=== PATIENT | female | born 1965 | race Caucasian/White ===

== ENCOUNTER 2021-06-16 12:54 | Outpatient (CLI) | payer BC, SELFPAY ==
[2021-06-16 14:35] LABS: SARS-CoV-2 RNA PCR Positive (Negative)
== END 2021-06-16 12:55 | disposition home or self-care (01) ==
LOC: CHSLAB 12:57
PROVIDERS: PCP Family Medicine Adolescent Medicine; Visit Provider Family Medicine Adolescent Medicine
DX: U07.1 COVID-19 (principal); R50.9 Fever, unspecified; M79.10 Myalgia, unspecified site
CPT/HCPCS: C9803; U0003; U0005

== ENCOUNTER 2021-11-17 13:09 | Emergency (ER) | payer BC, SELFPAY ==
--- NOTE | ~2021-11-17 | CT_ITS ---
EXAMINATION: CT brain wo con DATE: 11/17/2021 15:34 INDICATION: Status post post fall in shower. Headache. TECHNIQUE: Computed tomography (CT) of the head was performed without intravenous contrast. The dose- length product was 605.33 mGy-cm. Automated exposure control and iterative reconstruction technique w ere employed. COMPARISON: None FINDINGS: No acute intracranial hemorrhage, infarction, mass or mass effect. No ventriculomegaly or m idline shift. Basilar cisterns are patent. Normal gerardo-white differentiation. Maxillary, ethmoid, sph enoid and frontal sinuses. Mastoids are pneumatized. No depressed skull fractures. IMPRESSION: 1. No acute intracranial abnormality. 2: Moderate sinusitis. Reviewed, dictated and finalized at location A.
--- NOTE | ~2021-11-17 | CT_ITS ---
EXAMINATION: CT chest abdomen pelvis w con DATE: 11/17/2021 15:34 INDICATION: left upper abd pain, fall, LT RIB PAIN . TECHNIQUE: Computed tomography (CT) of the chest, abdomen, and pelvis was performed with 100 mL Omnip aque 300 intravenous contrast. Automated exposure control and iterative reconstruction technique were employed. The dose-length product was 605.33 mGy-cm. COMPARISON: CT chest 08/21/2016Z. CT abdomen and pelvis 05/28/2015. FINDINGS: CHEST: No thoracic aortic injury. No mediastinal hematoma. No pericardial effusion. No acute lung injury. No pleural effusion or pneumothorax. ABDOMEN/PELVIS: No solid organ injury. No evidence of bowel or mesenteric injury. No free fluid or free air. No retroperitoneal hematoma. Pelvic contents are atraumatic. MUSCULOSKELETAL: No acute fracture. No fracture or traumatic malalignment of the thoracic or lumbar spine. IMPRESSION: No acute process detected in the chest, abdomen, or pelvis. Reviewed, dictated and finalized at location K.
[2021-11-17 13:27] VITALS: BP 152/95; PULSE 84; RESP 16; TEMP 36.7; O2SAT 98
--- NOTE | 2021-11-17 14:00 | PC.NURSE ---
erp at bedside for initial assessment
--- NOTE | 2021-11-17 14:10 | ECG_ITS ---
Measurements Intervals [place] Rate: 73 P: 58 VA: 136 QRS: 13 QRSD: 89 T: 37 QT: 435 QTc: 483 Interpretive Statements SINUS RHYTHM VENTRICULAR PREMATURE COMPLEX RSR' IN V1 OR V2, PROBABLY NORMAL VARIANT BORDERLINE T WAVE ABNORMALITY- ANTERIOR LEADS BASELINE ARTIFACT- II, III, AVR, AVL, AVF, V2-V3 BORDERLINE ECG Electronically Signed On 11-17-2021 14:34:02 CDT by Aakash Guevara D.O.
[2021-11-17] MEDS: SODIUM CHLORIDE 0.9% IV 500 ML 999 ML IV CONT (14:23)
[2021-11-17] MEDS: KETOROLAC 30 MG/ML VIAL (*BKC) IM (14:23)
[2021-11-17 14:47] LABS: Basophils Absolute Auto 0.03 K/mm3 (0.00-0.10); Basophils Percent Auto 0.4 % (0.0-1.0); Eosinophils Absolute Auto 0.14 K/mm3 (0.02-0.50); Hemoglobin 13.9 g/dL (12.0-15.0); Immature Granulocyte Absolute 0.02 K/mm3 (0.00-0.00); Immature Granulocyte Percent A 0.3 % (0.0-0.0); Lymphocytes Absolute Auto 1.68 K/mm3 (1.10-4.50); Lymphocytes Percent Auto 23.4 % (18.0-42.0); Mean Corpuscular HGB Conc 33.1 g/dL (32.0-36.0); Mean Corpuscular Hemoglobin 31.8 pg (27.0-31.0); Mean Corpuscular Volume 96.1 fL (78.0-102.0); Monocytes Absolute Auto 0.47 K/mm3 (0.10-0.90); Monocytes Percent Auto 6.6 % (2.0-11.0); Neutrophils Absolute Auto 4.8 K/mm3 (1.7-7.2); Neutrophils Percent Auto 67.3 % (50.0-70.0); Platelet Count Result 245 K/mm3 (150-420); Red Blood Count 4.37 M/mm3 (4.20-5.40); Red Cell Distribution Width 14.6 % (11.6-14.4); White Blood Count 7.2 K/mm3 (4.8-10.8)
[2021-11-17 15:00] VITALS: BP 152/108; PULSE 65; RESP 18; O2SAT 97
[2021-11-17 15:03] LABS: Alanine Aminotransferase 19 U/L (14-59); Albumin Level 3.6 g/dL (3.4-5.0); Alkaline Phosphatase 84 U/L (46-116); Anion Gap 8 mmol/L (8-16); Aspartate Amino Transferase 15 U/L (15-37); Base Excess ABG -0.4 mmol/L (0-2); Bilirubin,Total 0.2 mg/dL (0.00-1.00); Blood Urea Nitrogen 6 mg/dL (7-18); Calcium 8.3 mg/dL (8.5-10.1); Carbon Dioxide 27 mmol/L (21-32); Chloride 105 mmol/L (98-108); Estimated Glomerular Filt Rate > 60; Glucose 93 mg/dL (70-99); HCO3 ABG 24.1 mmol/L (23-29); Lipase 203 U/L (73-393); Osmolality Calculated 287 mOsm/kg (285-295); Oxygen Content ABG 17.3 %vol (16.0-22.0); Oxygen Saturation ABG 90.5 % (95-97); Oxyhemoglobin 86.2 % (94-100); PCO2 ABG 39.1 mmHg (35-45); PO2 ABG 57.9 mmHg (80-90); Potassium 3.8 mmol/L (3.5-5.1); Sodium 140 mmol/L (136-145); Total Hemoglobin 14.3 g/dL (12.0-18.0); Troponin I 7.2 ng/L (0.00-60.4); pH ABG 7.41 (7.35-7.45)
[2021-11-17 15:04] LABS: Device ROOM AIR; Modified Allen's Test Pass; Site Drawn RIGHT RADIAL
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
[2021-11-17 16:00] VITALS: BP 158/92; PULSE 69; RESP 16; O2SAT 95
[2021-11-17 16:44] VITALS: BP 171/94; PULSE 73; RESP 16; TEMP 36.9; O2SAT 99
== END 2021-11-17 16:46 | disposition home or self-care (01) ==
PROVIDERS: Emergency Provider Emergency Medicine; PCP Family Medicine Adolescent Medicine
DX: S20.212A Contusion of left front wall of thorax, initial encounter (principal); W19.XXXA Unspecified fall, initial encounter
CPT/HCPCS: 36415; 36600; 70450; 71260; 74177; 80053; 82805; 83690; 84484; 85025; 93005; 96360; 96372; 99284; J1885; J7040; Q9967

== ENCOUNTER 2022-10-27 08:31 | Emergency (ER) | payer BC, SELFPAY ==
[2022-10-27] VITALS (9 sets, daily range): BP systolic 137–161; BP diastolic 89–103; PULSE 65–80; RESP 15–16; TEMP 36.3–36.8; O2SAT 97–100
--- NOTE | ~2022-10-27 | US_ITS ---
EXAMINATION: US venous doppler [facility] DATE: 10/27/2022 09:34 INDICATION: Lower limb pain and swelling. TECHNIQUE: Grayscale ultrasound images without and with compression and Doppler ultrasound images of the bilateral lower extremity veins were obtained. COMPARISON: None. FINDINGS: The visualized portions of right common femoral vein, profunda (deep) femoral vein, femoral vein, pop liteal vein, peroneal veins, posterior tibial veins, and greater saphenous vein outflow are patent. The visualized portions of left common femoral vein, profunda femoral vein, femoral vein, popliteal v ein, peroneal veins, posterior tibial veins, and greater saphenous vein outflow are patent. IMPRESSION: 1. No deep venous thrombosis. Reviewed, dictated and finalized at location A.
--- NOTE | ~2022-10-27 | XR_ITS ---
EXAMINATION: XR chest 2V DATE: 10/27/2022 10:12 INDICATION: Bilateral lower limb swelling TECHNIQUE: frontal and lateral views of the chest were obtained. COMPARISON: Chest CT dated 11/17/2021 FINDINGS: The lungs are clear with no focal airspace opacities, pulmonary edema, pleural effusion or pneumothor ax. The cardiomediastinal silhouette is normal. Mild thoracic spondylosis. Cholecystectomy clips in r ight upper quadrant. IMPRESSION: 1. No acute cardiopulmonary disease. Reviewed, dictated and finalized at location L.
--- NOTE | 2022-10-27 09:13 | ECG_ITS ---
Measurements Intervals [place] Rate: 67 P: 61 UT: 142 QRS: 47 QRSD: 89 T: 51 QT: 449 QTc: 477 Interpretive Statements SINUS RHYTHM INCOMPLETE RIGHT BUNDLE BRANCH BLOCK BORDERLINE T WAVE ABNORMALITY- ANTERIOR LEADS BORDERLINE ECG COMPARED TO ECG 11/17/2021 14:27:01 NO SIGNIFICANT CHANGES Electronically Signed On 10-27-2022 9:49:23 CDT by Aakash Guevara D.O.
--- NOTE | 2022-10-27 09:15 | ED.EXTPRO ---
HPI - Extremity Problem General Chief complaint: Extremity Problem,Nontraumatic <Jerilyn Olsen PA-C - Last Filed: 10/27/22 19:00> Stated complaint: leg pain <Jerilyn Olsen PA-C - Last Filed: 10/27/22 19:00> Time Seen by Provider: 10/27/22 08:57 <Jerilyn Olsen PA-C - Last Filed: 10/27/22 19:00> History of Present Illness HPI Narrative: 57 y/o F with a history of MDD, RISHABH, emphysema reports for evaluation of bilateral leg pain, swelling, and cramping x1 month, worsening over the past few days. Pt reports having 2-3 episodes of lower leg cramping in her calves and feet per night, along with lower leg cramping and swelling that occurs when she is standing for longer than 15 minutes. She also reports increased redness and discoloration to her calves after standing for long periods of time. She denies history of CHF, CKD, liver disease, history of VTE. Patient reports feeling short of breath due to emphysema that is unchanged from her baseline. Denies fever, rashes, body aches, new medications, use of diuretics, vomiting or diarrhea, lower extremity weakness. <BRANDON Rowell Last Filed: 10/27/22 19:00> Related Data Home medications: Home Medications Medication Instructions Recorded Confirmed ascorbic acid (vitamin C) 1,000 mg 1 g PO DAILY 08/27/21 11/17/21 tablet aspirin 81 mg tablet,delayed 81 mg PO DAILY 08/27/21 11/17/21 release (Adult Aspirin Regimen) <BRANDON Rowell Last Filed: 10/27/22 19:00> Allergies/Adverse reactions: Allergies Allergy/AdvReac Type Severity Reaction Status Date / Time Penicillins Allergy Unknown Rash Verified 11/17/21 13:30 <BRANDON Rowell Last Filed: 10/27/22 19:00> Review of Systems Review of Systems: CONSTITUTIONAL: Denies fever, chills EYES: Denies visual changes, redness, or discharge. ENT: Denies rhinorrhea, congestion, sore throat, or otalgia. CARDIOVASCULAR: Denies chest pain, palpitations, or edema. RESPIRATORY: Denies cough or dyspnea. GASTROINTESTINAL: Denies abdominal pain, nausea, vomiting, or diarrhea. GENITOURINARY: Denies dysuria or hematuria. SKIN: Denies rash or itching. MUSCULOSKELETAL: See HPI NEUROLOGIC: Denies headache, numbness, dizziness, or weakness. PSYCHIATRIC: Denies anxiety or depression. <Jerilyn Olsen PA-C - Last Filed: 10/27/22 19:00> [facility] Past Medical History Medical History: Medical History Contusion of rib on left side Normal colonoscopy 07/16 Repeat 07/26 <Jerilyn Olsen PA-C - Last Filed: 10/27/22 19:00> Surgical History Surgical History: Surgical History History of cholecystectomy 2014 History of hysterectomy with bilateral oophorectomy 2016 <Jerilyn Olsen PA-C - Last Filed: 10/27/22 19:00> Family History Family History: Family History Father Acute myocardial infarction Other Family history of cardiovascular disease Family history of malignant neoplasm Hypertension <Jerilyn Olsen PA-C - Last Filed: 10/27/22 19:00> Social History Social History: Social History Smoking packs per day: 1 Smoking cigarettes per day: 20.0 Years smoked: 30 Smoking pack-years: 30.00 Smoking status: Current every day smoker Tobacco type: cigarettes Second hand tobacco smoke exposure: Yes Alcohol intake: current Alcohol use details: 10 drinks a month Substance use: never Substance use type: does not use Living arrangements: with family Occupation/Education: occupation Gender identity (if verbalized by the patient): Female Sexual Orientation (if Verbalized by the Patient): Straight or Heterosexual Spiritual care concerns: No Agree to blood products: Yes <Jerilyn Hastings
[2022-10-27 09:56] LABS: Basophils Percent Auto 0.4 % (0.2-1.2); Eosinophils Absolute Auto 0.1 K/mm3 (0-0.3); Hematocrit 43.7 % (37.0-47.0); Hemoglobin 14.6 g/dL (12.0-15.0); Immature Granulocyte Absolute 0.04 K/mm3 (0.00-0.031); Immature Granulocyte Percent A 0.4 % (0-0.5); Lymphocytes Absolute Auto 1.69 K/mm3 (0.9-3.2); Lymphocytes Percent Auto 16.9 % (18.3-44.2); Mean Corpuscular HGB Conc 33.4 g/dl (32-36); Mean Corpuscular Hemoglobin 32.4 pg (26-34); Mean Corpuscular Volume 96.9 fl (80-100); Mean Platelet Volume 10.8 fl (7.4-10.4); Monocytes Absolute Auto 0.6 K/mm3 (0.1-0.6); Monocytes Percent Auto 5.5 % (2.6-8.5); Neutrophils Absolute Auto 7.6 K/mm3 (1.3-6.7); Neutrophils Percent Auto 75.8 % (45.5-73.1); Platelet Count Result 309 k/mm3 (150-375); Red Blood Count 4.51 M/mm3 (4.2-5.4); Red Cell Distribution Width 14.6 % (11.5-14.5)
[2022-10-27 10:02] LABS: Appearance Urine Clear (Clear); Bacteria Urine None Seen /hpf; Bilirubin Urine Negative (Negative); Color Urine Yellow (Yellow); Glucose Urine UA Negative (Negative); Ketones Urine Negative (Negative); Leukocyte Esterase Ur Negative LEU/UL (Negative); Nitrate Urine Negative (Negative); Non Pathogenic Casts 0-2; Protein Urine Negative (Negative); Specific Grav Ur 1.013 (1.001-1.035); Squamous Epithelial Cell Urine Few /hpf (Few); WBC Urine 0-5 /hpf
[2022-10-27 10:06] LABS: Alanine Aminotransferase 15 U/L (6-35); Albumin Level 4.3 g/dL (3.5-5.1); Alkaline Phosphatase 64 U/L (38-126); Anion Gap 2 mmol/L (8-16); Aspartate Amino Transferase 24 U/L (14-36); Bilirubin,Total 0.7 mg/dL (0.2-1.3); Blood Urea Nitrogen 7 mg/dL (7-17); Calcium 8.8 mg/dL (8.4-10.2); Carbon Dioxide 30 mmol/L (22-30); Chloride 107 mmol/L (98-107); Estimated CRCL calculation 72 ml/min; Estimated Glomerular Filt Rate > 60; Glucose 92 mg/dL (65-110); INR 0.9; Partial Thromboplastin Time 28.5 SECONDS (22.3-36.8); Potassium 3.9 mmol/L (3.4-5.0); Prothrombin Time 12.8 Seconds (11.1-14.7); Sodium 139 mmol/L (137-145)
[2022-10-27 10:07] LABS: Add Urine Microscopic? YES
[2022-10-27 10:32] LABS: Magnesium 1.9 mg/dL (1.6-2.3)
[2022-10-27 10:42] LABS: NT Pro B Type Natriuretic Pept 216 pg/mL (19.9-100)
== END 2022-10-27 11:09 | disposition home or self-care (01) ==
PROVIDERS: Emergency Provider Physician Assistant; PCP Family Medicine Adolescent Medicine
DX: R25.2 Cramp and spasm (principal); R31.9 Hematuria, unspecified; J43.9 Emphysema, unspecified; F32.9 Major depressive disorder, single episode, unspecified; F41.1 Generalized anxiety disorder; F17.210 Nicotine dependence, cigarettes, uncomplicated; Z90.49 Acquired absence of other specified parts of digestive tract; Z79.82 Long term (current) use of aspirin
CPT/HCPCS: 36415; 71046; 80053; 81001; 83735; 83880; 85025; 85610; 85730; 93005; 93970; 99284

== ENCOUNTER 2023-08-23 12:51 | Emergency (ER) | payer SELFPAY ==
--- NOTE | 2023-08-23 13:08 | PC.NURSE ---
pt left d/t wait time
== END 2023-08-23 13:14 | disposition left against medical advice (07) ==
LOC: ANHED 13:12
PROVIDERS: PCP Family Medicine Adolescent Medicine
DX: Z53.21 Procedure and treatment not carried out due to patient leaving prior to being seen by health care provider (principal)
CPT/HCPCS: 99199

== ENCOUNTER 2023-08-23 13:51 | Emergency (ER) | payer BC, SELFPAY ==
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
[2023-08-23 13:55] VITALS: BP 157/101; PULSE 78; RESP 17; TEMP 37.1; O2SAT 99
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
[2023-08-23] MEDS: CYCLOBENZAPRINE HCL 5 MG TABLET PO (14:28)
[2023-08-23] MEDS: LIDOCAINE 5% PATCH 1 PATCH TRANSDERM (14:28)
[2023-08-23] MEDS: KETOROLAC 30 MG/ML VIAL (*BKC) IM (14:28)
[2023-08-23] MEDS: ONDANSETRON HCL ODT 4 MG TABLET PO (14:28)
[2023-08-23 14:30] VITALS: BP 143/88; PULSE 72; RESP 17; O2SAT 97
[2023-08-23 15:00] VITALS: BP 150/83; PULSE 73; RESP 17; O2SAT 98
[2023-08-23 15:30] VITALS: BP 135/76; PULSE 66; RESP 17; O2SAT 97
--- NOTE | 2023-08-23 15:40 | PC.NURSE ---
On 08/23/23, the student, Radha Goodwin, provided care and completed [facility] documentation on this patient. I have reviewed the student's documentation and agree with the findings.
[2023-08-23 15:52] VITALS: BP 126/80; PULSE 68; RESP 17; TEMP 36.7; O2SAT 95
== END 2023-08-23 15:52 | disposition home or self-care (01) ==
PROVIDERS: Emergency Provider Preventive Medicine Aerospace Medicine; PCP Family Medicine Adolescent Medicine
DX: S16.1XXA Strain of muscle, fascia and tendon at neck level, initial encounter (principal); M62.830 Muscle spasm of back; M54.2 Cervicalgia; F17.210 Nicotine dependence, cigarettes, uncomplicated; Z79.82 Long term (current) use of aspirin; V43.52XA Car driver injured in collision with other type car in traffic accident, initial encounter; Y92.488 Other paved roadways as the place of occurrence of the external cause
CPT/HCPCS: 72125; 72128; 96372; 99284; A9270; J1885

== ENCOUNTER 2023-08-25 10:32 | Outpatient (CLI) | payer BC, SELFPAY ==
[2023-08-25 10:48] LABS: Basophils Absolute Auto 0.03 K/mm3 (0.00-0.10); Basophils Percent Auto 0.4 % (0.0-1.0); Eosinophils Absolute Auto 0.12 K/mm3 (0.02-0.50); Eosinophils Percent Auto 1.7 % (1.0-6.0); Hematocrit 43.9 % (35.0-49.0); Hemoglobin 14.5 g/dL (12.0-15.0); Immature Granulocyte Absolute 0.02 K/mm3 (0.00-0.00); Immature Granulocyte Percent A 0.3 % (0.0-0.0); Lymphocytes Absolute Auto 1.55 K/mm3 (1.10-4.50); Lymphocytes Percent Auto 21.9 % (18.0-42.0); Mean Corpuscular Hemoglobin 31.9 pg (27.0-31.0); Mean Corpuscular Volume 96.5 fL (78.0-102.0); Mean Platelet Volume 9.9 fl (9.2-11.8); Monocytes Absolute Auto 0.58 K/mm3 (0.10-0.90); Monocytes Percent Auto 8.2 % (2.0-11.0); Neutrophils Absolute Auto 4.8 K/mm3 (1.7-7.2); Neutrophils Percent Auto 67.5 % (50.0-70.0); Platelet Count Result 262 K/mm3 (150-420); Red Blood Count 4.55 M/mm3 (4.20-5.40); Red Cell Distribution Width 14.2 % (11.6-14.4); White Blood Count 7.1 K/mm3 (4.8-10.8)
[2023-08-25 11:39] LABS: Alanine Aminotransferase 19 U/L (14-59); Albumin Level 3.6 g/dL (3.4-5.0); Alkaline Phosphatase 70 U/L (46-116); Anion Gap 8 mmol/L (8-16); Aspartate Amino Transferase 12 U/L (15-37); Bilirubin,Total 0.6 mg/dL (0.00-1.00); Blood Urea Nitrogen 7 mg/dL (7-18); Carbon Dioxide 30 mmol/L (21-32); Chloride 104 mmol/L (98-108); Cholesterol 191 mg/dL (0-200); Estimated Glomerular Filt Rate > 60; Glucose 88 mg/dL (70-99); HDL Direct 55 mg/dL (40-60); LDL Cholesterol Calculated 100 mg/dL (<130); Osmolality Calculated 291 mOsm/kg (285-295); Potassium 4.5 mmol/L (3.5-5.1); Sodium 142 mmol/L (136-145); Total Protein 6.9 g/dL (6.4-8.2); Triglycerides 180 mg/dL (0-150); Vitamin B12 390 pg/mL (193-986)
[2023-08-25 11:44] LABS: Free T4 Free Thyroxine Reflex 0.77 ng/dL (0.76-1.46); Thyroid Stimulating Hormone Reflex 4.57 u/IU/mL (0.36-3.74)
== END 2023-08-25 10:33 | disposition home or self-care (01) ==
LOC: CHSLAB 10:37
PROVIDERS: PCP Family Medicine Adolescent Medicine; Visit Provider Nurse Practitioner Family
DX: F33.1 Major depressive disorder, recurrent, moderate (principal); F41.1 Generalized anxiety disorder; I70.0 Atherosclerosis of aorta; J43.9 Emphysema, unspecified; R06.00 Dyspnea, unspecified
CPT/HCPCS: 36415; 80053; 80061; 82607; 84439; 84443; 85025

== ENCOUNTER 2023-08-28 09:46 | Outpatient (CLI) | payer BC, SELFPAY ==
[2023-08-28 10:29] LABS: Magnesium 1.8 mg/dL (1.8-2.4)
[2023-08-31 16:34] LABS: Parathyroid Intact 33 pg/mL (14-64)
[2023-08-31 21:02] LABS: Vitamin D 25 Hydroxy 17 ng/mL (30-100)
[2023-09-01 16:27] LABS: Vitamin D 1,25 (OH)2 Total 51 pg/mL (18-72); Vitamin D2 1,25 (OH)2 <8 pg/mL; Vitamin D3 1,25 (OH)2 51 pg/mL
== END 2023-08-28 09:47 | disposition home or self-care (01) ==
LOC: CHSLAB 09:48
PROVIDERS: PCP Family Medicine Adolescent Medicine; Visit Provider Nurse Practitioner Family
DX: E83.51 Hypocalcemia (principal)
CPT/HCPCS: 36415; 82306; 82652; 83735; 83970

== ENCOUNTER 2023-09-24 13:39 | Outpatient (CLI) | payer BC, SELFPAY ==
--- NOTE | ~2023-09-24 | CT_ITS ---
EXAMINATION: CT lung screening DATE: 09/24/2023 14:05 INDICATION: Pleurodynia TECHNIQUE: Computed tomography (CT) of the chest was performed without intravenous contrast. The dose -length product was 58.49 mGy-cm. Automated exposure control and iterative reconstruction technique w ere employed. COMPARISON: None FINDINGS: No significant pleural or pericardial effusion. Heart size normal. There is atherosclerosis . No thoracic lymphadenopathy. Mild emphysema. No endobronchial lesions. Dependent atelectasis. No fo sienna airspace disease. There is a 2 mm left upper lobe nodule. There is a 4 mm lingular nodule, image 76. There is a 4 mm left lower lobe nodule, image 69. Mild thoracic spondylosis. No focal lytic or bl astic lesions. IMPRESSION: 1. Lung-RADS category 2: Benign appearance or behavior. Continue annual screening with noncontrast lo w-dose chest CT in 12 months. Reviewed, dictated and finalized at location B. IMPRESSION: 1. Lung-RADS category 2: Benign appearance or behavior. Continue annual screeni ng with noncontrast low-dose chest CT in 12 months.
== END 2023-09-24 13:40 | disposition home or self-care (01) ==
LOC: CHSIMG 13:41
PROVIDERS: PCP Family Medicine Adolescent Medicine; Visit Provider Nurse Practitioner Family
DX: Z12.2 Encounter for screening for malignant neoplasm of respiratory organs (principal); Z87.891 Personal history of nicotine dependence
CPT/HCPCS: 71271

== ENCOUNTER 2025-04-22 00:08 | Emergency (ER) | payer BC, OTHER, SELFPAY ==
[2025-04-22 00:08] VITALS: BP 132/81; PULSE 75; RESP 20; TEMP 35.8; O2SAT 92
--- NOTE | 2025-04-22 00:20 | ED.ALCOHOL ---
HPI - Alcohol General Stated Complaint: wellness check Time Seen by Provider: 04/22/25 00:13 Source: patient and EMS Mode of arrival: EMS Limitations: intoxication History of Present Illness HPI narrative: This is a 59-year-old female that presented from home after she had been drinking all day of beer along with some some cocktails and has a history of panic attacks and was hyperventilating her was concerned and called EMS. The patient currently hyperventilating but otherwise doing well with no chest pain no shortness of breath no abdominal pain no nausea vomiting no fever chills. complaint: alcohol intoxication Chronic alcohol use: Yes Previous visits for alcohol intoxication: No Recent trauma: No Associated symptoms: other (Anxiety and depression) Related Data Home Medications ?Medication ?Instructions ?Recorded ?Confirmed ?Last Taken ?Type ascorbic acid (vitamin C) 1,000 mg 1 g PO DAILY 08/27/21 11/14/24 Unknown History tablet aspirin 81 mg tablet,delayed 81 mg PO DAILY 08/27/21 11/14/24 Unknown History release (Adult Aspirin Regimen) aghbvadt-zlc-pkffp ac 400 tablet PO 11/14/24 11/14/24 Unknown History mcg-calcium carb 500 mg-vit K1 20 mcg tablet (Women's 50 Plus Multivitamin) Allergies Allergy/AdvReac Type Severity Reaction Status Date / Time Penicillins Allergy Unknown Rash Verified 04/22/25 00:51 Review of Systems Review of Systems: All systems reviewed & are unremarkable except as noted in HPI and below PMFSH Past Medical History Medical History Contusion of rib on left side Major depressive disorder, recurrent, moderate Normal colonoscopy 07/16 Repeat 07/26 Generalized anxiety disorder Emphysema lung Surgical History Surgical History History of cholecystectomy 2014 History of hysterectomy with bilateral oophorectomy 2016 Family History Family History Father Acute myocardial infarction Other Family history of cardiovascular disease Family history of malignant neoplasm Hypertension Social History Social History Smoking packs per day: 1 Smoking cigarettes per day: 20.0 Years smoked: 30 Smoking pack-years: 30.00 Smoking status: Current every day smoker Tobacco type: cigarettes Second hand tobacco smoke exposure: Yes Alcohol intake: current Alcohol use details: 10 drinks a month Substance use: never Substance use type: does not use Lack of Transportation: No Lack of Food: Never True Current Housing: I Have Housing Concerned About Future Housing: No Difficulty Paying Gas/Electric Bills: No Difficulty Paying for Meds: No Currently Unemployed: No Education: High School Diploma/GED Difficulty w/ Childcare or Family Care: No Living arrangements: with family Occupation/Education: occupation Gender identity (if verbalized by the patient): Female Sexual Orientation (if Verbalized by the Patient): Straight or Heterosexual Spiritual care concerns: No Agree to blood products: Yes Exam Const: General: healthy appearing and no acute distress Nutritional Appearance: well nourished Orientation/consciousness: patient oriented x3 Limitations: other limitations HENMT: Head: normal to inspection Eyes: Conjunctivae: conjunctivae normal Pupils: Equal, round and reactive pupils present Neck: Neck: normal visual inspection and no lymphadenopathy Chest: Chest palpation & inspection: normal inspection of the chest Resp: Effort & Inspection: normal respiratory effort Auscultation: clear to auscultation bilaterally Cardio: Rate: regular rate Rhythm: regular rhythm GI: GI Palp: Yes Soft to palpation Auscultation: normal bowel sounds Skin: General skin exam: normal color Neuro: General: patient oriented x3, moves all extremities and no meningeal signs Extrem: General: normal to inspection Psych: Affect: Anxious affect present Course Course Emergency Course: Medical visit decision making narrative: The patient was evaluated by myself in the emergency department. History was obtained from patient and has been to OR and in historians and physical exam was performed by nurse. Patient received 0.5mg PO Xanax Blood work with CMP magnesium and alcohol level were obtained. Repeat assessment Patient doing well on repeat exam in no acute distress new line symptoms improved since arrival to the emergency department. Repeat vitals stable Patient and family agree with the discussion after shared medical decision-making and agree with discharge. All questions answered to the patient and family satisfaction. Vital Signs Vital signs: Vital Signs Temperature 35.8 C L 04/22/25 00:08 Pulse Rate 75 04/22/25 00:08 Respiratory Rate 20 04/22/25 00:08 Blood Pressure 132/81 04/22/25 00:08 Pulse Oximetry 92 04/22/25 00:08 Oxygen Delivery Room Air 04/22/25 00:08 Temperature 35.8 C L 04/22/25 00:08 Pulse Rate 75 04/22/25 00:08 Respiratory Rate 20 04/22/25 00:08 Blood Pressure 132/81 04/22/25 00:08 Pulse Oximetry 92 04/22/25 00:08 Oxygen Delivery Room Air 04/22/25 00:08 Critical Care Time Critical Care Time Critical Care Time: No Discharge Plan Discharge Clinical Impression: Panic attack Acute alcohol intoxication Qualifiers: Complication of substance-induced condition: uncomplicated Qualified Code(s): F10.920 - Alcohol use, unspecified with intoxication, uncomplicated Patient Disposition: Home Condition: Stable Instructions: Antibiotic Form, Alcohol Intoxication (ED), Panic Attack (ED) Additional Instructions: Advised to continue current medical regimen and to follow up with her primary/neurologist has a. Patient Language: Tongan Prescriptions: No Action Women's 50 Plus Multivitamin 400 mcg-500 mg calcium-20 mcg tablet PO aspirin [Adult Aspirin Regimen] 81 mg tablet,delayed release (DR/EC) 81 mg PO DAILY ascorbic acid (vitamin C) 1,000 mg tablet 1 g PO DAILY duloxetine 60 mg capsule,delayed release(DR/EC) See Rx Instructions .ROUTE .COMPLEX Qty: 30 3RF Dose Instruction: TAKE ONE CAPSULE BY MOUTH DAILY Rx Instructions: TAKE ONE CAPSULE BY MOUTH DAILY alprazolam 1 mg tablet See Rx Instructions PO TID Qty: 120 4RF Rx Instructions: Take 1 once daily and 2 at bedtime PO; Follow-up/Referrals: Ramiro Lewis MD [Primary Care Provider, [facility]] Time of Disposition: 01:14
[2025-04-22] MEDS: ALPRAZolam (*CRX) 0.5 MG TABLET PO (00:24)
[2025-04-22 00:50] VITALS: BP 115/68; PULSE 65; RESP 18; O2SAT 93
[2025-04-22 01:02] LABS: Alanine Aminotransferase 16 U/L (6-35); Albumin Level 4.3 g/dL (3.5-5.1); Alkaline Phosphatase 70 U/L (38-126); Anion Gap 10 mmol/L (4-12); Aspartate Amino Transferase 32 U/L (14-36); Bilirubin,Total 0.2 mg/dL (0.2-1.3); Blood Urea Nitrogen 4 mg/dL (7-17); Calcium 8.6 mg/dL (8.4-10.2); Carbon Dioxide 29 mmol/L (22-30); Chloride 107 mmol/L (98-107); Estimated CRCL calculation 59 ml/min; Estimated Glomerular Filt Rate > 60; Glucose 109 mg/dL (65-110); Magnesium 2.1 mg/dL (1.6-2.3); Osmolality Calculated 299 mOsm/kg (285-295); Potassium 3.6 mmol/L (3.4-5.0); Sodium 146 mmol/L (137-145); Total Protein 8.6 g/dL (6.3-8.2)
[2025-04-22 01:20] VITALS: BP 104/80; PULSE 64; RESP 18; TEMP 35.9; O2SAT 90
[2025-04-22 01:24] VITALS: BP 104/80; PULSE 63; RESP 18; TEMP 36.5; O2SAT 93
== END 2025-04-22 01:24 | disposition home or self-care (01) ==
PROVIDERS: Emergency Provider Emergency Medicine; PCP Family Medicine Adolescent Medicine
DX: F41.0 Panic disorder [episodic paroxysmal anxiety] (principal); F10.920 Alcohol use, unspecified with intoxication, uncomplicated; J43.9 Emphysema, unspecified; F17.210 Nicotine dependence, cigarettes, uncomplicated
CPT/HCPCS: 36415; 80053; 82077; 83735; 99283; A9270

== ENCOUNTER 2025-05-23 14:32 | Outpatient (CLI) | payer OTHER, SELFPAY ==
--- NOTE | ~2025-05-23 | XR_ITS ---
EXAMINATION: XR chest 2V, 05/23/2025 14:30 RIM TECHNICIAN HISTORY: R07.9 - Chest pain, unspecified COMPARISON: No comparisons available. Technique: 2 views obtained. Findings: The lungs are clear, no effusion. No pneumothorax. Heart is normal size. Mediastinal and hilar contours are within normal limits. Bony thorax no acute abnormality. Impression: No acute cardiopulmonary abnormality. Reviewed, dictated and finalized at location P. TECHNICIAN Impression: No acute cardiopulmonary abnormality.
--- OUTSIDE RECORDS SUMMARY | 2025-05-23 14:36 | XMS_ITS | Data Portability ---
Author Organization [facility] [place], Main Office Address [address] [place] [address] Care Team Providers Care Stunner Animal Name Role Phone JUSTIN ARAUZ Primary Care Provider Assessment Encounter Date Assessment Date Assessment LastModified by Organization Details LastModified Time 10/05/2022 10/05/2022 This note is dictated and transcribed by [employer] Direct Software. Pediatric Registered Nurse variances may occur. Despite proofreading, typographical errors may occur. [email or web address] Not available 10/21/2022 15:10:24 Plan of Treatment Reminders Order Date Submit Date Provider Last Modified By Organization Details Last Modified Time Details Appointments None recorded. Lab None recorded. Referral sleep medicine referral 2023 [email or web address] 42 Nehemiah Arevalo MD, [address] [place], [address], 5 14:42:08 Procedures None recorded. Surgeries None recorded. Imaging None recorded. Medication Orders prednisone 20 mg tablet 2023 [facility], [facility] [place], [address], 4 15:26:53 doxycycline hyclate 100 mg tablet 2023 [facility], [facility] [place], [address], 4 15:26:54 Patient TargetsNo targets recorded. Patient Instructions Encounter Date Encounter Id Patient Instructions Last Modified By Organization Details Last Modified Time 04/26/2024 [id number] patient will be treated for sinusitis with doxycycline and prednisone. Take as directed. She will obtain a sinus CT. We will follow-up on results are become available. referral sent to sleep lab due to snoring For possible ALMAS. Not available 04/26/2024 15:27:43 Reason for Referral Sleep Medicine Referral for Snoring Referring Physician: Imani Daniels, Otolaryngology, Encounter Date: 04/26/2024 Results Created Date Observation Date Name Description Value Unit Range Abnormal Flag Note LastModifiedBy Organization Detail LastModifiedTime 10/10/19 22 10/09/2021 US, duple x, arter ial, lower extre mity No observ ation record ed. [id number] [facility] [address] [place], [address], 08/27/2022 01:02:31 05/09/20 24 05/09/2024 CT, sinus es, w/o contr ast No observ ation record ed. [email or web address] [facility] [address] [place], [address], 05/10/2024 16:21:15 05/10/20 24 05/10/2024 CT, maxil lofac ial, w/o contr ast No observ ation record ed. BARCODE Not Available 2023 17:09:18 Result Notes None recorded. Problems Name Problem SNOMED Code Status Onset Date Resolution Date Notes Provider Name and Address Organization Details Recorded Time Pain of toe of right foot 3929557360954 01 Active 2021 Not Available [facility] 3 01:01:00 Peripheral arterial occlusive disease 386655826 Active 2021 Not Available [facility] 3 01:01:00 Ingrowing nail 687494807 Active 2021 Not Available [facility] 3 01:01:00 Cigarette smoker 50787096 Active 2021 Not Available [facility] 3 01:01:00 Chronic sinusitis 14554380 Active 2023 Imani Aranda RN [facility], [place] [facility] [place] [facility] 4 15:13:05 Snoring 51387925 Active 2023 Imani Aranda RN null, [facility] 15:23:41 Problem Notes None recorded. Procedures Surgical History Date Name Laterality Status Provider Name and Address Organization Details Recorded Time 10/06/19 Nail Debridement completed Wm Gimenez, DPM [address] [facility], [facility] [address], [place], [address], [facility] 10/21/2022 15:11:57 Hysterectomy completed Not Available [facility] 08/27/2022 00:59:26 Tubal Ligation completed Not Available [facility] 08/27/2022 00:59:26 Cholecystectomy completed Not Available [facility] 08/27/2022 00:59:26 Imaging Results None recorded. Procedure Notes None recorded. Medical Equipment None Reported. Allergies Allergen ID Allergen Name Allergen Category Reaction Reaction Severity Criticality Documentation Date Start Date Code Code System Note Provider Name and Address Organization Details Recorded Time 64240 Product containin g penicilli n (product) medicatio n Not available Not available Not available 08/27/2022 86158 8001 SNOMED Not Available [facility] 01:02:19 Medications Name Sig Start Date Stop Date Status Note LastModified by Organization Details LastModified Time doxycycline hyclate 100 mg capsule Take 1 capsule twice a day by oral route as directed for 10 days. 04/26 completed Not Available Not Available Not Available azithromyci n 250 mg tablet 04/26 completed Not Available Not Available Not Available ibuprofen 800 mg tablet 04/26 completed Not Available Not Available Not Available alprazolam 1 mg tablet active Not Available Not Available Not Available ofloxacin 0.3 % eye drops 04/26 completed Not Available Not Available Not Available prednisone 20 mg tablet Take 1 tablet twice a day by oral route for 5 days. active Not Available Not Available No t Available aspirin 81 mg tablet,wan yed release Take 1 tablet every day by oral route. active Not Available Not Available No t Available tramadol 50 mg tablet TAKE 1 TAB PO Q 6 HRS PRN PAIN 04/26 completed Not Available Not Available Not Available ketorolac 0.5 % eye drops 04/26 completed Not Available Not Available Not Available prednisolon e acetate 1 % eye drops,suspe nsion 04/26 completed Not Available Not Available Not Available baclofen 10 mg tablet 04/26 completed Not Available Not Available Not Available trazodone 150 mg tablet TAKE 1 TABLET BY MOUTH AT BEDTIME 04/26 completed Not Available Not Available Not Available polymyxin B sulfate 10,000 unit-trimet hoprim 1 mg/mL eye drops PLACE 1 DROP IN LEFT EYE EVERY 3 TO 4 HOURS FOR 7 DAYS 04/26 completed Not Available Not Available Not Available omeprazole 20 mg capsule,del ayed release 04/26 completed Not Available Not Available Not Available mupirocin 2 % topical ointment 04/26 completed Not Available Not Available Not Available lorazepam 1 mg tablet 04/26 completed Not Available Not Available Not Available doxycycline hyclate 100 mg tablet Take 1 tablet twice a day by oral route for 10 days. active Not Available Not Available No t Available naproxen 500 mg tablet 04/26 completed Not Available Not Available Not Available cyclobenzap rine 5 mg tablet 04/26 completed Not Available Not Available Not Available duloxetine 60 mg capsule,del ayed release active Not Available Not Available Not Available aspirin 04/26 completed Not Available Not Available Not Available Vitals Date Recorded Heart rate Respiratory rate Oxygen saturation Systolic And Diastolic Provider Name and Address Organization Details Last Updated DateTime 10/05/2022 87 /min 16 /min 98 % 147/100 mm[Hg] Quita Charles Enrique [facility] 17:20:27 Date Recorded Heart rate Systolic And Diastolic Provider Name and Address Organization Details Last Updated DateTime 10/30/2021 82 /min 136/106 mm[Hg] Not Available [facility] 08/27/2022 00:59:57 Date Recorded Heart rate Systolic And Diastolic Provider Name and Address Organization Details Last Updated DateTime 11/06/2021 85 /min 155/99 mm[Hg] Not Available [facility] 08/27/2022 00:59:57 Date Recorded Heart rate Systolic And Diastolic Provider Name and Address Organization Details Last Updated DateTime 11/13/2021 79 /min 133/91 mm[Hg] Not Available [facility] 08/27/2022 00:59:57 Date Recorded Body height Body mass index (BMI) Body weight Body temperature Provider Name and Address Organization Details Last Updated DateTime 04/26/2024 160.02 cm 27.8 kg/m2 52601 g 97.8 [degF] Imani Aranda RN [place] [facility] 04/26/2024 15:10:01 Social History Question Answer Notes LastModified by Gig[employer] Details LastModified Time Tobacco Smoking Status Current Every Day Smoker Not Available [facility] 08/27/2022 00:58:39 What Is Your Level Of Caffeine Consumption? Occasional [id number] Information not available 08/27/2022 What Was The Date Of Your Most Recent Tobacco Screening? 10/06/2021 [id number] Information not available 08/27/2022 Have You Ever Been Counseled For Unhealthy Alcohol Use? No [id number] Information not available 08/27/2022 Has Tobacco Cessation Counseling Been Provided? No [id number] Information not available 08/27/2022 Sex: Unknown Functional Status Question Answer Note LastModified by [employer] Details LastModified Time Do you use any illicit or recreational drugs? No [id number] Information not available 08/27/2022 Do you or have you ever used any other forms of tobacco or nicotine? No [id number] Information not available 08/27/2022 What is your level of alcohol consumption? Occasional [id number] Information not available 08/27/2022 Mental Status None recorded. Family History Relationship Description Onset Age of this Age Resolved Age Notes LastModified by Organization Details LastModified Time Mother Arthritis [id number] Not available 08/27/2022 00:59:27 Mother Hypertensive disorder [id number] Not available 08/27/2022 00:59:27 Mother Heart disease [id number] Not available 08/27/2022 00:59:28 Mother Family history of malignant neoplasm [id number] Not available 08/27/2022 00:59:28 Father Pulmonary embolism [id number] Not available 08/27/2022 00:59:28 Notes:NO ENT Medical History Condition Response ARTHRITIS Y NO SIGNIFICANT PAST MEDICAL HISTORY Y DEPRESSION (INCLUDING POST ) Y Gynecological HistoryNo gynecological history recorded. Obstetrics History GPAL:G 0 P 0 0 0 0 Past Encounters Encounter ID Performer Location Encounter Start Date Encounter Closed Date Diagnosis/Indication Diagnosis SNOMED-CT Code Diagnosis ICD10 Code Diagnosis IMO Codes Diagnosis Note [id number] Wm Gimenez DPM [facility] [place] [address] [place] [id number] 10/06/2021 00:00:00 10/08/2021 11:35:05 [id number] Wm Gimenez DPM [facility] [place] [address] [place] [address] 10/16/2021 00:00:00 10/16/2021 12:37:08 [id number] [facility] [place] [address] [address] 10/30/2021 00:00:00 10/30/2021 10:20:40 [id number] [facility] [place] [address] [id number] 11/06/2021 00:00:00 11/06/2021 10:13:22 [id number] [facility] [place] [address] [place] [id number] 11/13/2021 00:00:00 11/13/2021 09:35:08 [id number] [facility] [place] [address] [place] [address] 10/05/2022 17:07:20 10/22/2022 10:48:11 Pain of toe of right foot 0041555439 48066 M79.674 secondary to above Ingrowing nail 640116138 L60.0 Right great toenail debrided without incidentWi ll continue to monitor if continues to be problemati c will require partial matrixecto [id number] MD LESLEE [facility] [place] [address] [place] [address] 04/26/2024 14:59:23 04/26/2024 15:28:37 Chronic sinusitis 85309181 J32.9 Snoring 62000081 R06.83 Health Concerns Section Related Observation LastModified by Organization Maribell ls LastModified Time None Recorded Concern Status LastModified by Organization Details LastModified Time None Recorded Advance Directives Directive None Recorded Payers Insurance Date Sequence Insurance Name Policy Number Policy Hurtado Covered Member ID Hurtado Member ID Guarantor Name 04/26/2024 1 [facility] PRIOR TO 01/26/2025 (MEDICAID REPLACEMENT - HMO) [id number] Melissa Fauststephany [id number] Melissa Govindstephany 04/26/2024 1 [employer]) [id number] Melissa Govindstephany [id number] Melissa Gvoindstephany Notes Date Note Type Note Provider Name and Address Organization Details Recorded Time 10/05/2022 text/html . Patient is a 57-year-old female who presents the office with complaints of pain to her right great toe. Patient denies any injury or wounds to the area. Patient denies any fever, chills, nausea vomiting. Patient states when she is walking she is pain to the distal end of the toe. Patient denies any other complaints. Wm Gimenez DPM [address] [facility] [address], [place], [address], [employer] 10/21/2022 15:12:51 04/26/2024 text/html This patient has a past medical history significant for peripheral arterial occlusive disease. She presents to the office with a complaint of sinus congestion, facial pressure and bilateral ear pain for several months. She states that her symptoms have worsened over the past month. She denies any use of antibiotics or steroids for this. She does report use of Flonase and eardrops that were prescribed by her PCP without symptom relief. She also reports that her significant other has reported that she snores often at night while sleeping. She states that she has had a sleep study done in the past but this was approximately 5 years ago. We will refer to sleep medicine. SHWETHA Gomes [address] [facility], [address], [place], [address], [email or web address] 04/26/2024 15:28:10 OBGyn Episode No OBEpisode recorded.
== END 2025-05-23 14:33 | disposition home or self-care (01) ==
LOC: CHSIMG 14:34
PROVIDERS: PCP Family Medicine Adolescent Medicine; Visit Provider Nurse Practitioner
DX: R07.9 Chest pain, unspecified (principal)
CPT/HCPCS: 71046